=== PATIENT | male | born 1975 | race Caucasian/White ===

== ENCOUNTER → 2024-10-01 06:51 | Outpatient (REF) | payer OTHER, SELFPAY ==
[2024-10-01 07:42] LABS: % Basophils 0.8 % (0-2); % Eosinophils 2.6 % (0-6); % Immature Granulocytes 0.4 % (0-0.5); % Lymphocytes 28.1 % (20.5-51.1); % Monocytes 8.1 % (1.7-9.3); Absolute Eosinophils 0.1 10^3/uL (0-0.7); Absolute Lymphocytes 1.4 10^3/uL (1.2-3.4); Absolute Monocytes 0.4 10^3/uL (0.1-0.6); Absolute Neutrophils 2.9 10^3/uL (1.4-6.5); Hematocrit 45.2 % (39.0-52.0); Hemoglobin 15.2 g/dL (13.0-18.0); Mean Corp Hgb Conc. 33.6 g/dL (33.0-37.0); Mean Corpuscular Volume 95.2 fL (80.0-94.0); Mean Platelet Volume 10.7 fL (7.4-10.4); Nucleated Red Blood Cells % 0 % (-); Platelet Count 190 10^3/uL (130-400); Red Blood Cell Count 4.75 10^6/uL (4.70-6.10); Red Cell Dist. Width 12.3 % (11.5-14.5); White Blood Cell Count 4.9 10^3/uL (4.8-10.8)
[2024-10-01 08:13] LABS: IgA 224 mg/dl (70-400)
[2024-10-01 08:16] LABS: ALT (SGPT) 20 U/L (0-50); AST (SGOT) 24 U/L (17-59); Albumin 4.4 g/dl (3.5-5.0); Alkaline Phosphatase 55 U/L (38-126); Blood Urea Nitrogen 21 mg/dl (9-20); Calcium 9.7 mg/dl (8.4-10.2); Carbon Dioxide 29 mmol/L (22-30); Chloride 101 mmol/L (98-107); Glucose 92 mg/dl (70-99); HDL Cholesterol 69 mg/dl; LDL Cholesterol, Calculated 86 mg/dl; Potassium 4.5 mmol/L (3.5-5.1); Sodium 140 mmol/L (135-145); Total Bilirubin 0.9 mg/dl (0.2-1.3); Total Cholesterol 167 mg/dl (50-199); Total Protein 6.8 g/dl (6.3-8.2); Triglyceride 61 mg/dl (10-149); Very Low Density Lipoprotein 12 mg/dl (0-30); eGFR > 60.00
[2024-10-01 08:43] LABS: TSH Reflex To Free T4 2.74 uIU/ml (0.47-4.68)
[2024-10-02 23:41] LABS: Endomysial IgA Antibody Titer <1:10 (<1:10)
[2024-10-03 15:10] LABS: tTG IgA Antibody 4.9 EU/ml (0-19); tTG IgG Antibody 12.8 EU/ml (0-19)
== END ==
LOC: REG 06:51
PROVIDERS: ATTENDING PHYSICIAN Registered Nurse
DX: Z76.89 Persons encountering health services in other specified circumstances (principal); J45.20 Mild intermittent asthma, uncomplicated; K59.1 Functional diarrhea
CPT/HCPCS: 36415; 80053; 80061; 82784; 83516; 84443; 85025; 86231

== ENCOUNTER → 2025-07-09 11:28 | Outpatient (REF) | payer OTHER, SELFPAY ==
[2025-07-09 14:39] LABS: C-Reactive Protein < 5.00 mg/L (0.0-10.00)
== END ==
LOC: REG 11:28
PROVIDERS: ATTENDING PHYSICIAN Registered Nurse
DX: K58.0 Irritable bowel syndrome with diarrhea (principal)
CPT/HCPCS: 36415; 83013; 85652; 86140

== ENCOUNTER → 2025-07-11 14:30 | Outpatient (REF) | payer OTHER, SELFPAY | LOC: REG 14:30 | PROVIDERS: ATTENDING PHYSICIAN Registered Nurse | DX: K58.0 Irritable bowel syndrome with diarrhea (principal) | CPT/HCPCS: 82653; 82705; 83993; 87045; 87046; 87427; 89055 ==

== ENCOUNTER 2025-08-26 06:22 | Day surgery (SDC) | payer OTHER, SELFPAY | END 2025-08-26 12:15 | disposition home or self-care (01) | LOC: GI 06:22 | PROVIDERS: ATTENDING PHYSICIAN Student in an Organized Health Care Education/Training Program | DX: K62.5 Hemorrhage of anus and rectum (principal); R19.4 Change in bowel habit; R14.0 Abdominal distension (gaseous); R19.7 Diarrhea, unspecified; K22.89 Other specified disease of esophagus; R10.84 Generalized abdominal pain; D12.8 Benign neoplasm of rectum; K63.5 Polyp of colon; K29.50 Unspecified chronic gastritis without bleeding; K63.9 Disease of intestine, unspecified | CPT/HCPCS: 45385; 45380; 43239; 88305; 88342 ==